=== PATIENT | male | born 1975 | race American Indian/Alaskan Native ===

== ENCOUNTER 2022-05-13 20:39 | Emergency (ER) | payer SELFPAY ==
[2022-05-13 21:21] VITALS: BP 132/95
[2022-05-13] MEDS ORDERED: ACETAMINOPHEN 500 MG TAB PO ONE (21:22)
== END 2022-05-14 10:04 | disposition left against medical advice (07) ==
LOC: ED 20:39
DX: R06.02 Shortness of breath (principal); Z53.21 Procedure and treatment not carried out due to patient leaving prior to being seen by health care provider